=== PATIENT | male | born 1965 | race Caucasian/White ===

== ENCOUNTER → 2018-03-07 | Outpatient (CLI) | payer BC | LOC: ULTRA 15:22 | DX: E01.0 Iodine-deficiency related diffuse (endemic) goiter (principal); R22.1 Localized swelling, mass and lump, neck ==

== ENCOUNTER → 2018-07-25 | Outpatient (CLI) | payer OTHER | LOC: CAT 10:46 | DX: Z13.6 Encounter for screening for cardiovascular disorders (principal); E78.00 Pure hypercholesterolemia, unspecified ==